=== PATIENT | female | born 1965 | race Two or more races ===

== ENCOUNTER 2023-09-12 08:28 | Day surgery (SDC) | payer BC ==
[~2023-09-12] VITALS: Ht 165.1 cm; Wt 72.6 kg
[~2023-09-12 08:28] MED LIST: ceFAZolin 2 GM/D5W50ml 50 ML IV ONE
[2023-09-12] MEDS ORDERED: LIDOCAINE 1% INJ PF 5ML AMP ONE (09:13)
[2023-09-12] MEDS ORDERED: GLYCOPYRROLATE 0.2 MG/ML 1ML VIAL ONE (09:13)
[2023-09-12] MEDS ORDERED: PROPOFOL 10 MG/ML 20 ML IV ONE ×2 (09:13→10:46)
[2023-09-12] MEDS ORDERED: ONDANSETRON HCL 4 MG/2 ML VIAL ONE (09:13)
[2023-09-12] MEDS ORDERED: DexAMETHasone SOD PHOS 10MG/1ML VIAL INJ ONE (09:14)
[2023-09-12] MEDS ORDERED: KETOROLAC TROMETH 30 MG/ML 1ML VIAL ONE (09:14)
[2023-09-12] MEDS ORDERED: CELECOXIB 100 MG CAP PO ONE (09:30)
[2023-09-12] MEDS ORDERED: GABAPENTIN 400 MG CAP PO ONE (09:30)
[2023-09-12] MEDS ORDERED: ACETAMINOPHEN IV 100 ML IV ONE (09:37)
[2023-09-12] MEDS ORDERED: KETAMINE 50mg/ML 1ml syringe ONE (09:57)
[2023-09-12] MEDS: GABAPENTIN 400 MG CAP ONE (10:00)
[2023-09-12] MEDS: CELECOXIB 100 MG CAP ONE (10:00)
[2023-09-12] MEDS: ACETAMINOPHEN IV 1000 MG/100ML (10MG/ML) IV ONE (10:00)
[2023-09-12] MEDS ORDERED: ePHEDrine SULFATE 50 MG/ML AMP ONE (10:49)
[2023-09-12] MEDS ORDERED: LABETALOL HCL 5 MG/ML 4ML SYRINGE IV PRN (11:15)
[2023-09-12] MEDS ORDERED: NALOXONE HCL 0.4 MG/ML VIAL IV PRN (11:15)
[2023-09-12] MEDS ORDERED: FLUMAZENIL 0.1 MG/ML INJ 10ML MDV IV PRN (11:15)
[2023-09-12] MEDS ORDERED: fentaNYL CITRATE 100 MCG/2 ML VL IV PRN (11:15)
[2023-09-12] MEDS ORDERED: HYDROmorphone HCL 2 MG/ML VL/or syr IV PRN (11:15)
[2023-09-12] MEDS ORDERED: ePHEDrine SULFATE 50 MG/ML AMP IV PRN (11:15)
[2023-09-12] MEDS ORDERED: ONDANSETRON HCL 4 MG/2 ML VIAL IV PRN ×2 (11:15→11:45)
[2023-09-12] MEDS ORDERED: hydrALAZINE HCL 20 MG/ML VL IV PRN (11:15)
[2023-09-12] MEDS ORDERED: LACTATED RINGER'S 1,000 ML IV SCH (11:45)
[2023-09-12 11:52] VITALS: BP 131/71; PULSE 67; RESP 15; O2SAT 100
== END 2023-09-12 12:15 | disposition home or self-care (01) ==
LOC: SUR 08:28
PROVIDERS: ATTEND Obstetrics & Gynecology
DX: N95.0 Postmenopausal bleeding (principal); Z90.49 Acquired absence of other specified parts of digestive tract; Z98.890 Other specified postprocedural states
CPT/HCPCS: 58563; 86850; 86900; 86901; J0131; J0690; J1100; J1885; J2405; J2704